=== PATIENT | female | born 1955 | race Caucasian/White ===

== ENCOUNTER 2018-04-29 22:10 | Emergency (ER) | payer OTHER ==
[~2018-04-29] VITALS: Ht 157.5 cm; Wt 54.4 kg
[~2018-04-29 22:10] MED LIST: ALBU90OI INH; ASPI325 PO; ATOR10 PO; BENZ100A PO; CALCA400CH PO; CYCL10 PO; Crutch1 EACH MISC; DEPRESSION MED; DIAZ5 PO; FISH1000 PO; HORMONES; METO25ER PO; Monodox100 MG PO; NAPR550 PO; NITR.4SL SL; Norco 5-325 Ta1 EACH PO; Percocet 10-321 EACH PO; Percocet 5-3251 EACH PO; Prednisone20 MG PO; RXHYDACE PO; RXNAPNA550 PO; RXSULTRIDS PO; SPACE CHAMBER1 EACH MC; SULTRIDS PO
[2018-04-29] MEDS ORDERED: IBUP600 PO (22:56)
== END 2018-04-29 23:22 | disposition home or self-care (01) ==
LOC: ER 22:10
DX: S62.316A Displaced fracture of base of fifth metacarpal bone, right hand, initial encounter for closed fracture (principal); Z88.5 Allergy status to narcotic agent; Z79.899 Other long term (current) drug therapy; Z79.82 Long term (current) use of aspirin; Z87.891 Personal history of nicotine dependence; Y04.8XXA Assault by other bodily force, initial encounter
CPT/HCPCS: 29125; 73130; 99284-25

== ENCOUNTER 2020-05-11 22:52 | Emergency (ER) | payer OTHER ==
[~2020-05-11] VITALS: Ht 165.1 cm; Wt 61.2 kg
[~2020-05-11 22:52] MED LIST changes: +IBUP600 PO
[2020-05-12] MEDS ORDERED: ASPI81CH PO (00:23)
[2020-05-12] MEDS ORDERED: NAUSEA MED (00:25)
== END 2020-05-12 01:36 | disposition home or self-care (01) ==
LOC: ER 22:52
DX: S01.511A Laceration without foreign body of lip, initial encounter (principal); R07.81 Pleurodynia; J43.9 Emphysema, unspecified; Z23 Encounter for immunization; Y09 Assault by unspecified means
CPT/HCPCS: 12011; 90471; 99283-25

== ENCOUNTER → 2020-05-19 | Outpatient (CLI) | payer OTHER ==
[~2020-05-19] MED LIST changes: +ASPI81CH PO; +NAUSEA MED
[2020-05-20 16:10] LABS: HPV 16 Negative (Negative); HPV 18 Negative (Negative); HPV OTHER HR TYPES Negative (Negative)
== END | disposition home or self-care (01) ==
LOC: LAB 12:39 → LAB SHORT 12:39
PROVIDERS: Nurse Practitioner Family
DX: Z01.411 Encounter for gynecological examination (general) (routine) with abnormal findings (principal)
CPT/HCPCS: 87624; G0123

== ENCOUNTER 2020-07-10 16:06 | Emergency (ER) | payer OTHER ==
[~2020-07-10] VITALS: Ht 157.5 cm; Wt 54.4 kg
[2020-07-10] MEDS ORDERED: HYDR1TAB94 PO (17:06)
== END 2020-07-10 17:25 | disposition home or self-care (01) ==
LOC: ER 16:06
DX: S52.501A Unspecified fracture of the lower end of right radius, initial encounter for closed fracture (principal); J43.9 Emphysema, unspecified; Z88.5 Allergy status to narcotic agent; Z79.82 Long term (current) use of aspirin; Z79.899 Other long term (current) drug therapy; Z87.891 Personal history of nicotine dependence; W01.10XA Fall on same level from slipping, tripping and stumbling with subsequent striking against unspecified object, initial encounter
CPT/HCPCS: 29125; 73110; 99283-25; A9270-GY

== ENCOUNTER → 2021-09-13 | Outpatient (CLI) | payer OTHER ==
[~2021-09-13] MED LIST changes: +HYDR1TAB94 PO
[2021-09-14 15:11] LABS: HPV 16 Negative (Negative); HPV 18 Negative (Negative); HPV OTHER HR TYPES Negative (Negative)
== END | disposition home or self-care (01) ==
LOC: LAB SHORT 14:30
PROVIDERS: Nurse Practitioner
DX: Z12.4 Encounter for screening for malignant neoplasm of cervix (principal)
CPT/HCPCS: 87624; G0123

== ENCOUNTER 2022-05-05 19:28 | Emergency (ER) | payer OTHER ==
[~2022-05-05] VITALS: Ht 157.5 cm; Wt 54.4 kg
== END 2022-05-06 02:35 | disposition home or self-care (01) ==
LOC: ER 19:28
DX: S01.511A Laceration without foreign body of lip, initial encounter (principal); R07.89 Other chest pain; Y04.2XXA Assault by strike against or bumped into by another person, initial encounter; J43.9 Emphysema, unspecified; Z88.5 Allergy status to narcotic agent; Z79.899 Other long term (current) drug therapy; Z87.891 Personal history of nicotine dependence
CPT/HCPCS: 71101

== ENCOUNTER 2022-10-04 08:23 | Day surgery (SDC) | payer OTHER ==
[~2022-10-04] VITALS: Ht 157.5 cm; Wt 57.3 kg
[~2022-10-04 08:23] MED LIST changes: +ALBU90OI; +CLON.5 PO; +ONDA4; +TAMS.4ER PO
--- NOTE | 2022-10-04 09:18 | NUR ---
History, Chart, Medications and Allergies reviewed before start of procedure.LUNGS CLEAR, PRE OP TEACHING DONE
--- NOTE | 2022-10-04 10:31 | NUR ---
10/04/22 1031 Teddy Clay HISTORY, CHART, MEDICATIONS AND ALLERGIES REVIEWED BEFORE START OF PROCEDURE. PATIENT CONFIRMS NPO STATUS AND AGREES WITH SCHEDULED PROCEDURE. 3-LEAD EKG REVIEWED WITH PHYSICIAN PRIOR TO START OF PROCEDURE. MONITOR INTACT WITH CONTINUOUS PULSE OXIMETRY,CAPNOGRAPHY, 3-LEAD EKG, INTERMITTENT BP. SUPPLEMENTAL O2 TO BE TITRATED THROUGHOUT PROCEDURE TO MAINTAIN O2 SATURATION ABOVE 90%. PATIENT DETERMINED TO BE ASA APPROPRIATE FOR PROPOFOL SEDATION PRIOR TO START OF PROCEDURE BY
--- NOTE | 2022-10-04 10:56 | NUR ---
Discharge instructions reviewed with patient. Patient verbalizes understanding. Copy given to patient to take home. Discharged via wheelchair to private car for ride home.
== END 2022-10-04 11:05 | disposition home or self-care (01) ==
LOC: ORSCMMR 08:23 → ORD 09:30 → ORSCMMR 09:30
PROVIDERS: Internal Medicine Gastroenterology
PROC: 0DJD8ZZ Inspection of Lower Intestinal Tract, Via Natural or Artificial Opening Endoscopic (ICD-10-PCS; principal; 2022-10-04 09:30)
DX: Z12.11 Encounter for screening for malignant neoplasm of colon (principal); Z86.010 Personal history of colon polyps; F32.A Depression, unspecified; E78.00 Pure hypercholesterolemia, unspecified; J44.9 Chronic obstructive pulmonary disease, unspecified; Z87.891 Personal history of nicotine dependence; Z79.82 Long term (current) use of aspirin; Z79.899 Other long term (current) drug therapy
CPT/HCPCS: J2704; J7120